=== PATIENT | female | born 1990 | race Caucasian/White ===

== ENCOUNTER 2018-08-19 22:54 | Emergency (ER) | payer OTHER ==
--- NOTE | 2018-08-19 23:26 | ER Document Report ---
ED Medical Screen (RME) - General Chief Complaint: Abdominal Pain Stated Complaint: ABDOMINAL PAIN Time Seen by Provider: 08/19/18 23:23 Notes: 28-year-old female coming in today with right lower quadrant abdominal pain and pelvic pain since this a.m. It is gradually gotten worse since this morning. Sharp in nature. Nonradiating. Some nausea present but no vomiting no fevers and no constipation. Patient has had a salpingectomy without oophorectomy. I have treated and performed a rapid initial assessment of this patient. A comprehensive ED assessment and evaluation of the patient, analysis of test results and completion of medical decision making process will be conducted by additional ED providers. PHYSICAL EXAMINATION: GENERAL: Well-appearing, well-nourished and in no acute distress. A&Ox4. Answers questions appropriately. LUNGS: Breath sounds clear to auscultation bilaterally and equal. No wheezes rales or rhonchi. HEART: Regular rate and rhythm without murmurs, rubs, gallops. ABDOMEN: Tender to deep palpation right lower quadrant/right pelvic region. Mild rebound tenderness. Extremities: No cyanosis, clubbing, or edema b/l. NEUROLOGICAL: Normal speech, normal gait. PSYCH: Normal mood, normal affect. TRAVEL OUTSIDE OF THE [place] IN LAST 30 DAYS: No Physical Exam - Vital signs Vitals: Temp Pulse Resp BP Pulse Ox 98.2 F 87 16 121/80 97 08/19/18 23:05 08/19/18 23:05 08/19/18 23:05 08/19/18 23:05 08/19/18 23:05 Course - Vital Signs Vital signs: Temp Pulse Resp BP Pulse Ox 98.2 F 87 16 121/80 97 08/19/18 23:05 08/19/18 23:05 08/19/18 23:05 08/19/18 23:05 08/19/18 23:05
[2018-08-20 00:12] LABS: ABSOLUTE EOSINOPHILS # (AUTO) 0.2 10^3/uL (0.0-0.6); ABSOLUTE MONOCYTES (AUTO) 0.7 10^3/uL (0.1-1.4); BASOPHILS % (AUTO) 0.2 % (0-2); EOSINOPHILS % (AUTO) 2.1 % (0-6); HEMATOCRIT 33.6 % (36.0-47.0); LYMPHOCYTES % (AUTO) 22.7 % (13-45); MEAN CORPUSCULAR HEMOGLOBIN 26.2 pg (27.0-33.4); MEAN CORPUSCULAR HGB CONC 32.9 g/dL (32.0-36.0); MEAN CORPUSCULAR VOLUME 80 fl (80-97); MONOCYTES % (AUTO) 7.9 % (3-13); PLATELET COUNT 218 10^3/uL (150-450); RED BLOOD COUNT 4.22 10^6/uL (3.72-5.28); RED CELL DISTRIBUTION WIDTH 15.3 % (11.5-14.0); SEGMENTED NEUTROPHILS % (AUTO) 67.1 % (42-78); TOTAL CELLS COUNTED % (AUTO) 100 %
[2018-08-20 00:22] LABS: APPEARANCE,URINE CLOUDY; BILIRUBIN,URINE NEGATIVE (NEGATIVE); COLOR,URINE YELLOW; GLUCOSE, URINE NEGATIVE (NEGATIVE); KETONES,URINE NEGATIVE (NEGATIVE); LEUKOCYTE ESTERASE,URINE NEGATIVE (NEGATIVE); NITRITE,URINE NEGATIVE (NEGATIVE); PROTEIN,URINE NEGATIVE (NEGATIVE); URINE SPECIFIC GRAVITY 1.029
[2018-08-20 00:32] LABS: ALANINE AMINOTRANSFERASE 21 U/L (9-52); ALKALINE PHOSPHATASE 56 U/L (38-126); ANION GAP 9 (5-19); ASPARTATE AMINO TRANSFERASE 14 U/L (14-36); BILIRUBIN,DIRECT 0.1 mg/dL (0.0-0.4); BILIRUBIN,TOTAL 0.5 mg/dL (0.2-1.3); BLOOD UREA NITROGEN 13 mg/dL (7-20); CALCIUM 9.5 mg/dL (8.4-10.2); CARBON DIOXIDE 26 mmol/L (22-30); CHLORIDE 103 mmol/L (98-107); GLUCOSE 91 mg/dL (75-110); SODIUM 138.4 mmol/L (137-145); TOTAL PROTEIN 6.7 g/dL (6.3-8.2)
[2018-08-20 00:36] LABS: POTASSIUM 4.2 mmol/L (3.6-5.0)
--- NOTE | 2018-08-20 01:46 | ER Document Report ---
ED General - General Chief Complaint: Abdominal Pain Stated Complaint: ABDOMINAL PAIN Time Seen by Provider: 08/19/18 23:23 Primary Care Provider: [facility] [Provider Group] - Follow up in 3-5 days Notes: Patient is a 28-year-old female that presents to the emergency department for chief complaint of right-sided pelvic pain. Patient states she started having this pain early in the morning, progressed throughout the day yesterday, to the point she wanted to come to the emergency department to have it checked out, it is somewhat eased up since then. She currently rates her pain as a 3 out of 10 describes as a sharp sensation in her right pelvis. She denies having dysuria hematuria, she states is been having some spotting between her periods. She is status post salpingectomy. Denies any fevers, chills, night sweats, she is had some mild nausea, but denies vomiting, denies any chest pain, shortness of breath or difficulty breathing. Past Medical History: Denies chronic medical conditions Past Surgical History: Bilateral salpingectomy Social History: Denies tobacco, alcohol or drug use. Family History: Reviewed and noncontributory for presenting illness Allergies: Reviewed, see documented allergy list. REVIEW OF SYSTEMS: Other than noted above, the 12 point review of systems was reviewed with the patient and were negative, all pertinent findings are included in the HPI. PHYSICAL EXAMINATION: Vital signs reviewed, nursing noted reviewed. GENERAL: Well-appearing, well-nourished and in no acute distress. HEAD: Atraumatic, normocephalic. EYES: Eyes appear normal, extraocular movements intact, sclera anicteric, conjunctiva are normal. ENT: nares patent, oropharynx clear without exudates. Moist mucous membranes. NECK: Normal range of motion, supple without lymphadenopathy LUNGS: Breath sounds clear to auscultation bilaterally and equal. No wheezes rales or rhonchi. HEART: Regular rate and rhythm without murmurs ABDOMEN: Soft, right pelvic tenderness to palpation, mild suprapubic tenderness to palpation, no upper abdominal tenderness, normoactive bowel sounds. No rebound, guarding, or rigidity. No masses appreciated. EXTREMITIES: Nontender, good range of motion, no pitting or edema. NEUROLOGICAL: No focal neurological deficits. Moves all extremities spontaneously Motor and sensory grossly intact on exam. PSYCH: Normal mood, normal affect. SKIN: Warm, Dry, normal turgor, no rashes or lesions noted on exposed skin TRAVEL OUTSIDE OF THE [place] IN LAST 30 DAYS: No - Related Data Allergies/Adverse Reactions: amoxicillin Allergy (Verified 08/20/18 01:59) Past Medical History - Social History Smoking Status: Never Smoker Family History: Reviewed & Not Pertinent Physical Exam - Vital signs Vitals: Temp Pulse Resp BP Pulse Ox 98.2 F 87 16 121/80 97 08/19/18 23:05 08/19/18 23:05 08/19/18 23:05 08/19/18 23:05 08/19/18 23:05 Course - Re-evaluation Re-evalutation: Patient seen and examined vital signs reviewed. Laboratory data and/or imaging were ordered as appropriate for the patient's presenting symptoms and complaint, with consideration of any critical or life threatening conditions that may be associated with their obtained history and exam as noted above. Results were reviewed when available and demonstrated unremarkable blood work, negative urinalysis, transvaginal ultrasound demonstrated left sided cyst, amanda spect possible recently ruptured right-sided ovarian cyst, is negative for torsion, I do not suspect appendicitis in this patient, she has no leukocytosis, her pain is well controlled at this time without any analgesics, no fever, nausea, vomiting or tachycardia. The patient was re-evaluated and was stable Evaluation was most consistent with right-sided pelvic pain, recommended follow- up with primary care, advised if her symptoms worsen, to return to the emergency department as it still possible it could be early appendicitis, however unlikely. Results were discussed with the patient at this point, after careful consideration I feel that that patient can be discharged from the emergency d epartment, the patient was educated treatments and reasons to return to the emergency department based on their presumed diagnosis as noted above, they were advised to followup with a primary care physician in 2-3 days. Patient was agreeable to plan of care. *Note is created using voice recognition software and may contain spelling, syntax or grammatical errors. Laboratory 08/19/18 08/19/18 08/19/18 23:35 23:35 23:35 WBC 9.0 RBC 4.22 Hgb 11.0 L Hct 33.6 L MCV 80 MCH 26.2 L MCHC 32.9 RDW 15.3 H Plt Count 218 Seg Neutrophils % 67.1 Lymphocytes % 22.7 Monocytes % 7.9 Eosinophils % 2.1 Basophils % 0.2 Absolute Neutrophils 6.0 Absolute Lymphocytes 2.0 Absolute Monocytes 0.7 Absolute Eosinophils 0.2 Absolute Basophils 0.0 Sodium 138.4 Potassium 4.2 Chloride 103 Carbon Dioxide 26 Anion Gap 9 BUN 13 Creatinine 0.86 Est GFR ( Amer) > 60 Est GFR (Non-Af Amer) > 60 Glucose 91 Calcium 9.5 Total Bilirubin 0.5 Direct Bilirubin 0.1 Neonat Total Bilirubin Not Reportable Neonat Direct Bilirubin Not Reportable Neonat Indirect Bili Not Reportable AST 14 ALT 21 Alkaline Phosphatase 56 Total Protein 6.7 Albumin 4.0 Urine Color YELLOW Urine Appearance CLOUDY Urine pH 5.0 Ur Specific Conger 1.029 Urine Protein NEGATIVE Urine Glucose (UA) NEGATIVE Urine Ketones NEGATIVE Urine Blood NEGATIVE Urine Nitrite NEGATIVE Urine Bilirubin NEGATIVE Urine Urobilinogen 2.0 H Ur Leukocyte Esterase NEGATIVE Urine WBC (Auto) 3 Urine RBC (Auto) 0 Urine Bacteria (Auto) TRACE Squamous Epi Cells Auto 17 Urine Mucus (Auto) MANY Urine Ascorbic Acid NEGATIVE Urine HCG, Qual NEGATIVE Transvaginal US 08/20/18 01:45 IMPRESSION: Septated left adnexal/ovarian cyst. Remainder is unremarkable. Recommend follow-up as per below. (1) Recommendations based upon the 2010 SRU Consensus Conference Statement on the Management of Asymptomatic Ovarian and Other Adnexal Cysts Imaged at US: Radiology. 2009;256(3):943-54 Recommendations for f/u of ovarian anechoic simple cyst, simple cyst with single thin <3 mm septation, or focal calcification in wall of cyst (1): Pre-menopause: <= 5 cm No follow-up imaging recommended >5 cm - <=7 cm US f/u annually >7 cm Consider MR w/IVC or surgical evaluation Post-menopause (>=1 year from last menstrual period): <=3 cm No follow-up imaging recommended >3 cm - <=7 cm US f/u annually >7 cm Consider MR w/IVC or surgical evaluation (1) Recommendations based on 2010 SRU Consensus Conference Statement on the Management of Asymptomatic Ovarian and Other Adnexal Cysts Imaged at US: Radiology. 2009;2563):275-20 - Vital Signs Vital signs: Temp Pulse Resp BP Pulse Ox 97.8 F 66 17 111/57 L 97 08/20/18 04:49 08/20/18 04:49 08/20/18 04:49 08/20/18 04:49 08/20/18 04:49 - Laboratory Result Diagrams: 08/19/18 23:35 08/19/18 23:35 Laboratory results interpreted by me: 08/19/18 08/19/18 23:35 23:35 Hgb 11.0 L Hct 33.6 L MCH 26.2 L RDW 15.3 H Urine Urobilinogen 2.0 H Discharge - Discharge Clinical Impression: Pelvic pain Ovarian cyst Qualifiers: Laterality: left Qualified Code(s): N83.202 - Unspecified ovarian cyst, left side Condition: Stable Disposition: HOME, SELF-CARE Instructions: Ovarian Cyst ([facility]) Additional Instructions: Please follow-up with your [employer]PRES[employer]ER or primary care, given listed with your paperwork one in the area if needed, I advised taking 600 mg of Motrin, every 8 hours if needed for pain, if your symptoms worsen to the degree that this is not helping, or if you develop fevers, or chills, or continued vomiting, do not hesitate to return to the emergency department to be reevaluated. Referrals: [facility] [Provider Group] - Follow up in 3-5 days
--- NOTE | 2018-08-20 04:18 | RADIOLOGY REPORT (SQ) ---
EXAM DESCRIPTION: US PELVIS TRANSVAGINAL COMPLETED DATE/TME: 08/20/2018 01:45 CLINICAL HISTORY: 28 years, Female, right pelvic pain COMPARISON: None. TECHNIQUE: Transverse and longitudinal transvaginal sonographic images of the pelvis LIMITATIONS: None. FINDINGS: The uterus measures 9.0 x 4.8 x 5.7 cm. In nature and measures 12 mm in thickness. The myometrium is homogenous. The right ovary measures 2.8 x 1.6 x 1.7 cm. Left ovary measures 4.1 x 3.6 x 2.5 cm. Arterial and venous flow to both ovaries. There is a septated cyst of the left adnexa measuring 2.8 x 2.0 x 1.8 cm. No solid adnexal mass. No free fluid. IMPRESSION: Septated left adnexal/ovarian cyst. Remainder is unremarkable. Recommend follow-up as per below. (1) Recommendations based upon the 2010 SRU Consensus Conference Statement on the Management of Asymptomatic Ovarian and Other Adnexal Cysts Imaged at US: Radiology. 2009;256(3):943-54 Recommendations for f/u of ovarian anechoic simple cyst, simple cyst with single thin <3 mm septation, or focal calcification in wall of cyst (1): Pre-menopause: <= 5 cm No follow-up imaging recommended >5 cm - <=7 cm US f/u annually >7 cm Consider MR w/IVC or surgical evaluation Post-menopause (>=1 year from last menstrual period): <=3 cm No follow-up imaging recommended >3 cm - <=7 cm US f/u annually >7 cm Consider MR w/IVC or surgical evaluation (1) Recommendations based on 2010 SRU Consensus Conference Statement on the Management of Asymptomatic Ovarian and Other Adnexal Cysts Imaged at US: Radiology. 2010 Oct;256(3):943-18
[2018-08-20 04:50] VITALS: BP 111/57
== END 2018-08-20 04:50 | disposition home or self-care (01) ==
LOC: ER 22:54
DX: N83.292 Other ovarian cyst, left side (principal); R10.2 Pelvic and perineal pain; Z90.79 Acquired absence of other genital organ(s)
CPT/HCPCS: 36415; 76830; 80053; 81001; 81025; 85025; 93976; 99284